=== PATIENT | male | born 1950 | race Caucasian/White ===

== ENCOUNTER → 2016-12-08 | Outpatient (CLI) | payer OTHER ==
[~2016-12-08] MED LIST: ALEVE220 MG PO; ALLEGRA ALLERG180 MG PO; ASPIR 8181 MG PO; CENTRUM SILVER1 EAC2 PO; COLACE100 MG PO; FISH OIL 1,001000 M2 PO; MOBIC7.5 MG PO; NORVASC5 MG PO; PERCOCET 10-321 EACH PO; PRILOSEC 20 MG20 MG PO; SENNA PO; TYLENOL325 MG PO; WELLBUTRIN SR150 MG PO; XARELTO10 MG PO; ZOCOR20 MG PO
== END ==
LOC: RAD 12:16
DX: R06.02 Shortness of breath (principal)

== ENCOUNTER 2016-12-15 05:15 | Inpatient (IN) | payer OTHER ==
[2016-11-30 13:49] LABS: PROTIME 10.3 Seconds (9.3-11.4)
[2016-12-15] VITALS (8 sets, daily range): BP systolic 101–147; BP diastolic 61–85
[~2016-12-15] VITALS: Ht 177.8 cm; Wt 98.0 kg
--- NOTE | ~2016-12-15 | O ---
[facility] [place] [address] OPERATIVE REPORT Name: AGGIE WHITAKER Room #: 307-P ADM IN M.R.#: [id number] Admission: 12/15/16 Attend Phys: Hubert Healy MD Discharge: Date of : 50 Report #: [id number] THIS REPORT FOR: //name// CC: Magdaleno Healy DATE OF SERVICE: 12/15/2016 PREOPERATIVE DIAGNOSIS: Right knee degenerative joint disease, severe. POSTOPERATIVE DIAGNOSIS: Right knee degenerative joint disease, severe. PROCEDURE: Right total knee arthroplasty. SURGEON: Hubert Healy MD. ANESTHESIA: General. INDICATIONS: See hospital history and physical. IMPLANTS UTILIZED: We used a DePuy PFC knee system. We used a cruciate retaining femoral component of size 5, size 5 tibial tray, 12.5 mm insert, and a 41 mm oval dome patella. DESCRIPTION OF PROCEDURE: After adequate general anesthesia had been obtained, the patient's right lower extremity was prepped and draped in the usual meticulous sterile fashion. Limb was exsanguinated with gravity. Tourniquet was inflated to 350 torr. An anterior midline incision was made. SubQ was divided sharply. Hemostasis was obtained with electrocautery. Medial parapatellar incision was made. Infrapatellar fat pad excised. Medial release performed along the joint line only. The drill was used to drill the distal femur. This hole was enlarged, irrigated, suctioned, and the intramedullary guide was placed the full length of the femur. Valgus angle was set at 5, which matched the patient's anatomy. Distal femoral cutting guide was pinned into place, and the distal femoral cut was made. We used a measuring device, determined the size 5 as appropriate size for this patient. We marked the distal femur, impacted the cutting guide into place and the anterior, posterior, and chamfer cuts were made. A rongeur was used to remove additional osteophytes. At this time, the ACL was transected, tibia translated anteriorly, menisci were excised. Drill was used to drill the central portion of the tibia. This hole was enlarged, irrigated, suctioned, and the intramedullary guide placed the full length of the tibia. The proximal tibial cutting guide placed at appropriate height. Proximal tibial cut was made. 5 tray gave us the best coverage on the [address] [address] OPERATIVE REPORT Name: AGGIE WHITAKER Room #: 307-P [facility] IN M.R.#: [id number] Admission: 12/15/16 Attend Phys: Hubert Healy MD Discharge: Date of : 50 Report #: [id number] tibia. Trial components were put in position. With 12.5 spacer, we had the best flexion and extension gap. Patella tracked normally. Patella was then measured, cutting guide clamped into place, patellar cut was made. The 41 template gave us the best coverage. Pedicles were drilled, trial component put in position. It tracked normally. At this time, the knee was taken through several cycles of flexion and extension. The patella tracked normally. We marked the rotation of the tibia and drilled the distal femur. The trial components were removed. Tibial keel cuts were made. The knee was irrigated with both pulse lavage and antibiotic irrigation. Bone plugs were placed in the proximal tibia and distal femur. The cement was vacuum mixed, and when it reached the appropriate consistency, the knee was thoroughly dried, the tibial tray was cemented in to place. Excess cement was removed. The polyethylene was impacted in to place and the femur impacted in to place, and the knee was taken out to 30 degrees of flexion with uniform compression placed across the components. Patellar button was then cemented into place and again excess cement was removed. At this time, irrigation was placed in the wound and allowed to rest in the wound until the cement fully cured. When it had done so, the knee was irrigated, dried thoroughly, and inspected. Drains were placed superolaterally both deep and superficial. Retinacular layer closed with a combination of interrupted [id number]-[id number] #1 Vicryl, as well as running #1 Tevdek. SubQ closed with 2-0 Monocryl. Skin closed with zhou. Sterile compressive dressing was complied. Tourniquet was then deflated. By: 0845 [id number] Hubert Healy MD /nt
--- NOTE | ~2016-12-15 | H ---
[facility] [address] [place] [address] HISTORY AND PHYSICAL Name: AGGIE WHITAKER Room #: 307-P ADM IN M.R.#: [id number] Admission: 12/15/16 Attend Phys: Hubert Healy MD Discharge: Date of : 50 Report #: [id number] THIS REPORT FOR: //name// For History and Physical, please see office documentation/handwritten note in the patient's medical record. By: 1226 Hubert Healy MD /
--- NOTE | ~2016-12-15 | EKG ---
[address] [address] ELECTROCARDIOGRAM REPORT Name: AGGIE WHITAKER Room #: PRE IN [facility].#: [id number] Admission: Attend Phys: Hubert Healy MD Discharge: Date of : 50 Report #: [id number] THIS REPORT FOR: //name// [facility] Test Date: 2016-11-30 Test Time: 12:55:57 Pat Name: AGGIE WHITAKER Department: Room: Gender: M [employer] Developer: OCTAVIO MCKEON : 1950 Requested By: Hubert Healy Order Number: [id number] MD: Seng Reyes Measurements Intervals [place] Rate: 66 P: 41 MT: 196 QRS: 60 QRSD: 129 T: 28 QT: 419 QTc: 439 Interpretive Statements Sinus rhythm Right bundle branch block Compared to ECG 09/24/2014 09:38:40 No significant changes Electronically Signed On 12-01-2016 8:57:30 CDT by Seng Reyes [email or web address] <ELECTRONICALLY SIGNED> By: Seng Reyes MD, [facility] 12/01/16 [id number] Seng Reyes MD, FACC /EPI
[2016-12-16 04:00] VITALS: BP 117/81
[2016-12-16 05:24] LABS: HEMATOCRIT 38.9 % (42.0-52.0); HEMOGLOBIN 13.2 gm/dL (14.0-18.0); MCH 33.9 pg (26.0-34.0); MCV 99.5 fL (80.0-100.0); RBC 3.91 mil/uL (4.50-6.00); WBC 10.5 thou/uL (4.0-11.0)
[2016-12-16 07:52] VITALS: BP 113/91
[2016-12-16 12:36] VITALS: BP 113/91
[2016-12-16 16:01] VITALS: BP 131/69
[2016-12-16 19:24] VITALS: BP 130/66
[2016-12-17 04:22] VITALS: BP 125/80
[2016-12-17 05:46] LABS: ABSOLUTE NEUTROPHILS 6.8 thou/uL (1.4-8.2); BASOPHILS 0.4 % (0.0-2.0); EOSINOPHILS 0.8 % (0.0-3.0); HEMOGLOBIN 12.3 gm/dL (14.0-18.0); LYMPHOCYTES 12.6 % (24.0-44.0); MANUAL DIFF NO; MCH 34.3 pg (26.0-34.0); MCHC 35.1 g/dL (28.0-37.0); MCV 97.7 fL (80.0-100.0); MONOCYTES 14.9 % (1.0-8.0); PLATELET COUNT 114 thou/uL (150-400); POLYS 71.3 % (36.0-66.0); RBC 3.59 mil/uL (4.50-6.00); RDW 14.1 % (10.5-14.5); WBC 9.5 thou/uL (4.0-11.0)
[2016-12-17 05:57] LABS: CALCIUM 8.5 mg/dL (8.5-10.1); CREATININE 1.1 mg/dL (0.7-1.3); MAGNESIUM 1.8 mg/dL (1.8-2.4); POTASSIUM 3.9 mmol/L (3.5-5.1)
[2016-12-17 08:38] VITALS: BP 125/69
[2016-12-17 15:51] VITALS: BP 151/70
[2016-12-17 16:23] VITALS: BP 113/91
[2016-12-17 22:02] VITALS: BP 143/79
[2016-12-18 02:45] VITALS: BP 127/70
[2016-12-18 05:52] LABS: HEMATOCRIT 33.6 % (42.0-52.0); HEMOGLOBIN 11.7 gm/dL (14.0-18.0); MCH 34.9 pg (26.0-34.0); MCHC 34.7 g/dL (28.0-37.0); MCV 100.5 fL (80.0-100.0); RBC 3.34 mil/uL (4.50-6.00); WBC 8.5 thou/uL (4.0-11.0)
[2016-12-18] MEDS ORDERED: PERCOCET 10-321 EACH PO (07:13)
[2016-12-18] MEDS ORDERED: XARELTO10 MG PO (07:13)
[2016-12-18 08:12] VITALS: BP 115/66
[2016-12-18 11:40] VITALS: BP 113/91
[2016-12-18 12:29] VITALS: BP 113/91
== END 2016-12-18 12:40 | disposition home health service (06) | DRG 470 ==
LOC: 3N 05:15 → TBA 05:15 → PRE 06:18 → 3N 11:23 → PRE 15:03 → 3N 12-18 12:40
PROVIDERS: Nurse Practitioner; Orthopaedic Surgery
PROC: 0SRC0J9 Replacement of Right Knee Joint with Synthetic Substitute, Cemented, Open Approach (ICD-10-PCS; principal; 2016-12-15)
DX: M17.11 Unilateral primary osteoarthritis, right knee (principal); E78.5 Hyperlipidemia, unspecified; J45.909 Unspecified asthma, uncomplicated; F32.9 Major depressive disorder, single episode, unspecified; K21.9 Gastro-esophageal reflux disease without esophagitis; Z96.652 Presence of left artificial knee joint; K22.70 Barrett's esophagus without dysplasia; I10 Essential (primary) hypertension; F17.210 Nicotine dependence, cigarettes, uncomplicated; Z88.0 Allergy status to penicillin; Z79.82 Long term (current) use of aspirin; Z79.899 Other long term (current) drug therapy; Z80.9 Family history of malignant neoplasm, unspecified; Z81.8 Family history of other mental and behavioral disorders; Z82.49 Family history of ischemic heart disease and other diseases of the circulatory system
CPT/HCPCS: 10795; 50010; 50101; 50415; 50612; 50954; 51130; 51225; 51320; 51412; 51771; 52001; 52282; 53000; 53078; 53364; 56525; 56527; 62110; 62900; 70005